=== PATIENT | female | born 1960 | race Hispanic/Latino ===

== ENCOUNTER 2025-05-04 02:20 | Emergency (ER) | payer MEDICARE, MEDICAID ==
[~2025-05-04] VITALS: Ht 147.3 cm; Wt 73.4 kg
[2025-05-04 02:47] LABS: BASO # 0.1 10^3/uL (0.0-0.2); BASO % 0.6 % (0.0-1.0); EOS # 0.2 10^3/uL (0.0-0.5); EOS % 2.2 % (0.0-3.0); LYMPH # 3.2 10^3/uL (1.5-5.0); LYMPH % 33.8 % (24.0-44.0); MONO # 1.2 10^3/uL (0.0-0.8); MONO % 12.5 % (2.0-8.0); NEUTROPHILS # 4.8 10^3/uL (1.5-8.5); NEUTROPHILS % 50.6 % (36.0-66.0); PLATELET COUNT, AUTOMATED 277 10^3/uL (150-450)
[2025-05-04] MEDS: NITROGLYCERIN 0.4 MG SUBL TABLET SL PRN (02:58)
[2025-05-04 03:17] LABS: CALCIUM LEVEL 9.0 MG/DL (8.3-10.6); CARBON DIOXIDE LEVEL 27 MMOL/L (20-31); CHLORIDE LEVEL 107 MMOL/L (98-107); CREATININE FOR GFR 0.76 MG/DL (0.55-1.30); GLOMERULAR FILTRATION RATE 86.9 (>45); POTASSIUM SERUM 4.5 MMOL/L (3.5-5.1); SODIUM LEVEL 144 MMOL/L (136-145)
[2025-05-04 03:18] LABS: CK-MB VALUE MASS < 1.0 NG/ML (<3.6)
[2025-05-04 03:20] LABS: CPK CREATINE PHOSPHOKINASE 35 U/L (34-145)
[2025-05-04] MEDS: ACETAMINOPHEN *IV* 1,000 MG in IV 1 EA IV ONE (03:53)
[2025-05-04] MEDS ORDERED: ISOVUE-370 76% 100 ML VIAL As Ordered ONE (04:07)
[2025-05-04] MEDS: NS (Normal Saline) 0.9% 1,000 ML IV ONE (04:09)
[2025-05-04 04:14] LABS: CPK CREATINE PHOSPHOKINASE 33 U/L (34-145)
[2025-05-04 04:15] LABS: CK-MB VALUE MASS < 1.0 NG/ML (<3.6)
[2025-05-04 04:19] LABS: MAGNESIUM LEVEL 1.9 MG/DL (1.8-2.4)
[2025-05-04 05:45] VITALS: BP 155/97; TEMP 97.6; O2SAT 97
== END 2025-05-04 06:08 | disposition home or self-care (01) ==
LOC: M ED 02:20 → EDBD 02:20 → M ED 06:08
DX: R07.89 Other chest pain (principal); I10 Essential (primary) hypertension; E78.5 Hyperlipidemia, unspecified; K21.9 Gastro-esophageal reflux disease without esophagitis; Z90.49 Acquired absence of other specified parts of digestive tract; Z88.0 Allergy status to penicillin; Z88.5 Allergy status to narcotic agent
CPT/HCPCS: 71045; 71275; 80048; 82550; 82553; 83735; 84484; 85025; 85379; 87486; 87581; 87633; 87798; 93005; 93041; 94760; 96365; 96366; 99285; J0134; Q9967